=== PATIENT | male | born 1935 | race Caucasian/White ===

== ENCOUNTER 2016-11-08 05:05 | Inpatient (IN) | payer MEDICARE, OTHER ==
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
[2016-11-08 07:09] LABS: ALBUMIN 3.9 g/dL (3.5-5.0); ANION GAP 11 (5-19); ASPARTATE AMINO TRANSFERASE 38 U/L (17-59); BILIRUBIN,TOTAL 1.4 mg/dL (0.2-1.3); BLOOD UREA NITROGEN 38 mg/dL (7-20); CALCIUM 9.5 mg/dL (8.4-10.2); CARBON DIOXIDE 27 mmol/L (22-30); CHLORIDE 106 mmol/L (98-107); CREATININE RESULT 2.93 mg/dL (0.52-1.25); GLUCOSE 172 mg/dL (75-110); POTASSIUM 3.9 mmol/L (3.6-5.0); SODIUM 143.7 mmol/L (137-145); TOTAL PROTEIN 6.6 g/dL (6.3-8.2)
[2016-11-08 07:10] LABS: ALANINE AMINOTRANSFERASE 44 U/L (21-72); ALKALINE PHOSPHATASE 281 U/L (38-126)
--- NOTE | 2016-11-08 08:54 | EKG REPORT ---
SEVERITY:- ABNORMAL ECG - SINUS RHYTHM RBBB AND LPFB ST DEPRESSION, CONSIDER ISCHEMIA, ANT-LAT LDS : Confirmed by: Mali Fuentes 08-Nov-2016 08:53:25
[2016-11-08] MEDS ORDERED: FEBUXOSTAT 40 MG TABLET PO PRN (14:25)
[2016-11-08] MEDS ORDERED: HYDROCODONE/ACETAMINOPHEN 5-325 MG TABLET PO PRN (14:25)
[2016-11-08] MEDS ORDERED: ZOLPIDEM TARTRATE 5 MG TABLET PO PRN ×2 (14:25→15:11)
[2016-11-08] MEDS ORDERED: CYCLOBENZAPRINE HCL PO PRN (14:25)
[2016-11-08] MEDS ORDERED: CYCLOBENZAPRINE HCL 10 MG TABLET PO PRN (15:24)
[2016-11-08] MEDS ORDERED: DILTIAZEM HCL INJ 25 MG/5 ML VIAL IV ONE ×3 (16:30→18:00)
[2016-11-08] MEDS ORDERED: CARVEDILOL 12.5 MG TABLET PO ONE (16:30)
[2016-11-08] MEDS ORDERED: FUROSEMIDE 80 MG TABLET PO ONE (16:30)
[2016-11-08] MEDS ORDERED: AMLODIPINE BESYLATE 10 MG TABLET PO ONE (16:30)
[2016-11-08] MEDS ORDERED: ISOSORBIDE MONONITRATE 30 MG TAB.ER.24H PO ONE (16:30)
[2016-11-08] MEDS ORDERED: LOSARTAN POTASSIUM 50 MG TABLET PO ONE (16:30)
[2016-11-08] MEDS ORDERED: DILTIAZEM HCL/D5W 125 ML IV PRN (16:47)
[2016-11-08] MEDS ORDERED: METOPROLOL TARTRATE PF/INJ 5 MG/5 ML SDV IV ONE (17:15)
[2016-11-08] MEDS: CARVEDILOL 12.5 MG TABLET PO SCH (17:18)
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
--- NOTE | 2016-11-08 17:28 | Progress Note ---
Provider Note Provider Note: 11/08/2016 17:00 Patient became tachycardic On the monitor is in A. fib at a rate of 140/mn His blood pressure is 140/100 he is totally asymptomatic no chest pain no shortness of breath; he is sitting on chair very comfortable Patient was given 10 mg of Cardizem IV, 5 mg of Lopressor IV, is Coreg 12.5 mg that he had missed earlier also was given by mouth Rate is still at 130/mn Patient will be transferred to [facility] for Cardizem drip Case was discussed with Dr. [place] will consult Dr. Hollis also was notified; we will decide in a.m. if the vascular procedure can take place
[2016-11-08] MEDS ORDERED: (PENDING PHARMACY ID) (Insulin Aspart Protam & Aspart [Novolog Mix 70-30 Vial] 20 UNIT) SQ SCH (18:00)
[2016-11-08] MEDS ORDERED: FUROSEMIDE 80 MG TABLET PO SCH (18:00)
[2016-11-08] MEDS ORDERED: INSULIN GLARGINE,HUM.REC.ANLOG 1,000 UNIT/10 ML UNIT SUBCUT SCH (18:00)
[2016-11-08] MEDS ORDERED: DOCUSATE SODIUM 100 MG CAPSULE PO SCH (18:00)
[2016-11-08] MEDS ORDERED: GABAPENTIN 300 MG CAPSULE PO SCH (18:00)
[2016-11-08] MEDS ORDERED: FUROSEMIDE 40 MG TABLET PO SCH ×2 (18:00)
[2016-11-08] MEDS: INSULIN GLARGINE,HUM.REC.ANLOG 1,000 UNIT/10 ML UNIT SUBCUT SCH (18:01)
[2016-11-08] MEDS: DOCUSATE SODIUM 100 MG CAPSULE PO SCH (18:03)
[2016-11-08] MEDS ORDERED: DEXTROSE 50%-WATER 25 GM/50 ML DISP.SYRIN IV PRN ×2 (18:04)
[2016-11-08] MEDS ORDERED: DEXTROSE 40% GEL 15 GM TUBE PO PRN ×2 (18:04)
[2016-11-08] MEDS ORDERED: GLUCAGON,HUMAN RECOMB 1 MG INJ IM PRN (18:04)
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
[2016-11-08] MEDS: ATORVASTATIN CALCIUM 80 MG TABLET PO SCH (21:12)
[2016-11-08] MEDS: GABAPENTIN 300 MG CAPSULE PO SCH (21:13)
[2016-11-08] MEDS ORDERED: CARVEDILOL 12.5 MG TABLET PO SCH (22:00)
[2016-11-08] MEDS ORDERED: ATORVASTATIN CALCIUM 40 MG TABLET PO SCH ×2 (22:00)
[2016-11-08] MEDS ORDERED: CARVEDILOL 6.25 MG TABLET PO SCH ×2 (22:00)
[2016-11-08] MEDS: INSULIN LISPRO 100 UNIT/ML 3 ML VIAL SUBCUT PRN (22:06)
--- NOTE | 2016-11-08 23:02 | EKG REPORT ---
SEVERITY:- ABNORMAL ECG - SINUS RHYTHM RBBB AND LPFB ST DEPRESSION, CONSIDER ISCHEMIA, ANT-LAT LDS : Confirmed by: Mali Fuentes 08-Nov-2016 23:01:48
--- NOTE | 2016-11-08 23:03 | EKG REPORT ---
SEVERITY:- ABNORMAL ECG - ATRIAL FIBRILLATION RBBB AND LPFB ST DEPRESSION, CONSIDER ISCHEMIA, ANT-LAT LDS : Confirmed by: Mali Fuentes 08-Nov-2016 23:02:03
[2016-11-09 06:06] LABS: ABSOLUTE EOSINOPHILS # (AUTO) 0.2 10^3/uL (0.0-0.6); ABSOLUTE LYMPHOCYTES (AUTO) 0.6 10^3/uL (0.5-4.7); ABSOLUTE MONOCYTES (AUTO) 0.4 10^3/uL (0.1-1.4); ABSOLUTE NEUT (AUTO) 2.8 10^3/uL (1.7-8.2); BASOPHILS % (AUTO) 0.6 % (0-2); EOSINOPHILS % (AUTO) 4.2 % (0-6); HEMATOCRIT 28.7 % (37.9-51.0); HEMOGLOBIN 10.1 g/dL (13.5-17.0); HGB HCT DIFFERENCE 1.6; LYMPHOCYTES % (AUTO) 15.5 % (13-45); MEAN CORPUSCULAR HEMOGLOBIN 32.6 pg (27.0-33.4); MEAN CORPUSCULAR HGB CONC 35.3 g/dL (32.0-36.0); MEAN CORPUSCULAR VOLUME 92 fl (80-97); MONOCYTES % (AUTO) 9.3 % (3-13); RED BLOOD COUNT 3.11 10^6/uL (4.35-5.55); SEGMENTED NEUTROPHILS % (AUTO) 70.4 % (42-78)
[2016-11-09 06:09] LABS: ANION GAP 10 (5-19); BLOOD UREA NITROGEN 34 mg/dL (7-20); CARBON DIOXIDE 31 mmol/L (22-30); CHLORIDE 99 mmol/L (98-107); CREATININE RESULT 2.64 mg/dL (0.52-1.25); GLUCOSE 193 mg/dL (75-110); POTASSIUM 3.7 mmol/L (3.6-5.0); SODIUM 139.7 mmol/L (137-145)
[2016-11-09] MEDS: GABAPENTIN 300 MG CAPSULE PO SCH ×3 (06:53→21:35)
[2016-11-09] MEDS ORDERED: INSULIN GLARGINE,HUM.REC.ANLOG 1,000 UNIT/10 ML UNIT SUBCUT SCH (08:00)
[2016-11-09] MEDS ORDERED: ALTEPLASE INJ 2 MG VIAL (CATH CLEARANCE) INJ PRN (09:18)
[2016-11-09] MEDS ORDERED: AMLODIPINE BESYLATE 10 MG TABLET PO SCH ×2 (10:00)
[2016-11-09] MEDS ORDERED: POLYETHYLENE GLYCOL 3350 POWDER 17 GM/1 PACKET PO SCH (10:00)
[2016-11-09] MEDS ORDERED: [UNRECOGNIZED DRUG - REMARK] PO SCH (10:00)
[2016-11-09] MEDS ORDERED: ASPIRIN 81 MG TABLET, CHEWABLE PO SCH (10:00)
[2016-11-09] MEDS ORDERED: ISOSORBIDE MONONITRATE 30 MG TAB.ER.24H PO SCH (10:00)
[2016-11-09] MEDS ORDERED: (PENDING PHARMACY ID) (Losartan Potassium [Losartan Potassium] 1 TAB) PO SCH (10:00)
[2016-11-09] MEDS: INSULIN GLARGINE,HUM.REC.ANLOG 1,000 UNIT/10 ML UNIT SUBCUT SCH ×2 (10:02→17:38)
[2016-11-09] MEDS: DOCUSATE SODIUM 100 MG CAPSULE PO SCH ×2 (10:03→17:35)
[2016-11-09] MEDS: LOSARTAN POTASSIUM 50 MG TABLET PO SCH (10:03)
[2016-11-09] MEDS: ISOSORBIDE MONONITRATE 30 MG TAB.ER.24H PO SCH (10:04)
[2016-11-09] MEDS: FUROSEMIDE 80 MG TABLET PO SCH ×2 (10:04→17:35)
[2016-11-09] MEDS: ASPIRIN 81 MG TABLET, CHEWABLE PO SCH (10:48)
[2016-11-09] MEDS: POLYETHYLENE GLYCOL 3350 POWDER 17 GM/1 PACKET PO SCH (10:49)
[2016-11-09] MEDS: FOLIC ACID/VITAMIN B COMP W-C CAPSULE PO SCH (11:58)
[2016-11-09] MEDS: INSULIN LISPRO 100 UNIT/ML 3 ML VIAL SUBCUT PRN ×3 (12:21→21:37)
--- NOTE | 2016-11-09 13:51 | PDOC PROGRESS REPORT ---
Subjective Progress Note for:: 11/09/16 Subjective:: Rate is being controlled throughout the night at times he is in normal sinus rhythm or sinus arrhythmia with frequent PACs. He remains asymptomatic. Abdomen episode of confusion during the night apparently he received his zolpidem and Neurontin at the same time he usually splits dosing by several hours. He remembers being confused this morning described by the patch machine operator as an episode of a seizure on his exam. Stat CT of the head without contrast showed no evidence of acute event. By the time I arrived to the patient is back to baseline has full recollection of the events and feels like it was an adverse reaction to the medications be given simultaneously last night. Review of systems: Total of 10 systems have been reviewed with the patient pertinent positives and negatives noted above remaining systems are negative Physical Exam Vital Signs: Temp Pulse Resp BP Pulse Ox 97.7 F 52 L 18 146/97 H 100 11/09/16 11:51 11/09/16 11:51 11/09/16 07:21 11/09/16 12:01 11/09/16 11:51 Intake & Output 11/08/16 11/09/16 11/10/16 06:59 06:59 06:59 Intake Total 961 0 Output Total 2500 Balance -1539 0 Weight 78 kg General appearance: PRESENT: no acute distress, cooperative Eye exam: PRESENT: EOMI, PERRLA. ABSENT: scleral icterus Mouth exam: PRESENT: moist, neck supple Neck exam: PRESENT: full ROM. ABSENT: lymphadenopathy Respiratory exam: PRESENT: clear to auscultation marie. ABSENT: accessory muscle use Cardiovascular exam: PRESENT: RRR. ABSENT: tachycardia Pulses: PRESENT: normal carotid pulses, normal radial pulses - Left arm fistula has audible bruit but no palpable thrill GI/Abdominal exam: PRESENT: normal bowel sounds, soft. ABSENT: tenderness Extremities exam: PRESENT: full ROM, pedal edema Neurological exam: PRESENT: alert, awake, oriented to person, oriented to place , oriented to time, oriented to situation. ABSENT: ataxia, aphasic Psychiatric exam: PRESENT: appropriate affect Skin exam: PRESENT: dry. ABSENT: jaundice Results Laboratory Results: 11/09/16 04:52 11/09/16 04:52 11/09/16 11/09/16 04:52 04:52 WBC 4.0 RBC 3.11 L Hgb 10.1 L Hct 28.7 L MCV 92 MCH 32.6 MCHC 35.3 RDW 14.0 Plt Count 75 L Seg Neutrophils % 70.4 Lymphocytes % 15.5 Monocytes % 9.3 Eosinophils % 4.2 Basophils % 0.6 Absolute Neutrophils 2.8 Absolute Lymphocytes 0.6 Absolute Monocytes 0.4 Absolute Eosinophils 0.2 Absolute Basophils 0.0 Sodium 139.7 Potassium 3.7 Chloride 99 Carbon Dioxide 31 H Anion Gap 10 BUN 34 H Creatinine 2.64 H Est GFR ( Amer) 28 L Est GFR (Non-Af Amer) 23 L Glucose 193 H Calcium 9.0 Impressions: Chest X-Ray 11/08/16 05:16 IMPRESSION: CARDIAC ENLARGEMENT. VASCULAR CONGESTION. Head CT 11/09/16 06:10 IMPRESSION: MILD CHRONIC CHANGES OF ATROPHY AND MICROVASCULAR ISCHEMIA. NO ACUTE PROCESS. Assessment & Plan - Diagnosis (1) Afib Qualifiers: Atrial fibrillation type: unspecified Qualified Code(s): I48.91 - Unspecified atrial fibrillation Is this a current diagnosis for this admission?: YesPlan: Cardiology consult pending. Stop Cardizem drip, since his rate is controlled and he has converted to normal sinus rhythm. Patient missed his dose of Coreg as well as his dialysis over the weekend likely contributing to the new onset. Patient is well known to Dr. CORRIGAN and will defer to him for further recommendations including initiation of anticoagulation (2) CKD stage 5 secondary to hypertension Plan: Hemodialysis per nephrology (3) Diabetes mellitus type II, controlled Qualifiers: Diabetes mellitus complication status: with kidney complications Diabetes mellitus complication detail: with chronic kidney disease Chronic kidney disease stage: on chronic dialysis Is this a current diagnosis for this admission?: YesPlan: Continue current regimen (4) Fluid overload Qualifiers: Hypervolemia type: unspecified Qualified Code(s): E87.70 - Fluid overload, unspecified Is this a current diagnosis for this admission?: YesPlan: Due to missing hemodialysis over the weekend (5) Acute on chronic congestive heart failure Qualifiers: Congestive heart failure type: diastolic Qualified Code(s): I50.33 - Acute on chronic diastolic (congestive) heart failure Is this a current diagnosis for this admission?: YesPlan: Continue dialysis per nephrology patient is stable from this standpoint. Respiratory status improved. Continue attempts to wean O2. (6) Dialysis AV fistula malfunction Qualifiers: Encounter type: subsequent encounter Qualified Code(s): T82.590D - Other mechanical complication of surgically created arteriovenous fistula, subsequent encounter Is this a current diagnosis for this admission?: YesPlan: Dr. Hollis, vascular surgery, anticipates revision in the morning (7) Acute encephalopathy Is this a current diagnosis for this admission?: YesPlan: Resolved. Likely adverse drug reaction from combination of Neurontin and Ambien complicated by his failure to complete his hemodialysis as scheduled resulting in fluid overload and acute hypoxemia. - Time Time Spent with patient: 35 or more minutes
[2016-11-09] MEDS: CARVEDILOL 12.5 MG TABLET PO SCH (17:39)
[2016-11-09] MEDS: ATORVASTATIN CALCIUM 80 MG TABLET PO SCH (21:35)
[2016-11-10] MEDS: CARVEDILOL 12.5 MG TABLET PO SCH ×2 (05:42→17:36)
[2016-11-10] MEDS: GABAPENTIN 300 MG CAPSULE PO SCH ×3 (05:43→21:11)
[2016-11-10 07:46] LABS: ANION GAP 8 (5-19); BLOOD UREA NITROGEN 51 mg/dL (7-20); CALCIUM 8.6 mg/dL (8.4-10.2); CARBON DIOXIDE 31 mmol/L (22-30); CHLORIDE 100 mmol/L (98-107); CREATININE RESULT 3.25 mg/dL (0.52-1.25); GLUCOSE 80 mg/dL (75-110); MAGNESIUM 1.9 mg/dL (1.6-2.3); PHOSPHORUS 4.8 mg/dL (2.5-4.5); POTASSIUM 3.7 mmol/L (3.6-5.0); SODIUM 139.1 mmol/L (137-145)
[2016-11-10 08:14] LABS: RED BLOOD COUNT 2.92 10^6/uL (4.35-5.55); WHITE BLOOD COUNT 2.7 10^3/uL (4.0-10.5)
[2016-11-10 08:15] LABS: HEMATOCRIT 26.8 % (37.9-51.0); HEMOGLOBIN 9.5 g/dL (13.5-17.0); HGB HCT DIFFERENCE 1.7; MEAN CORPUSCULAR HEMOGLOBIN 32.5 pg (27.0-33.4); MEAN CORPUSCULAR HGB CONC 35.5 g/dL (32.0-36.0); MEAN CORPUSCULAR VOLUME 92 fl (80-97); RED CELL DISTRIBUTION WIDTH 13.9 % (11.5-14.0)
[2016-11-10] MEDS ORDERED: ALTEPLASE INJ 2 MG VIAL (CATH CLEARANCE) INJ PRN (08:18)
[2016-11-10] MEDS ORDERED: FENTANYL CITRATE INJ/PF 100 MCG/2 ML AMPUL ONE (09:50)
[2016-11-10] MEDS ORDERED: MIDAZOLAM 2 MG/2 ML INJ ONE (09:50)
[2016-11-10] MEDS ORDERED: EPOETIN ALFA 10,000 UNIT in SYRINGE, DISPOSABLE, 1 EACH IV ONE (10:00)
[2016-11-10] MEDS ORDERED: LIDOCAINE 0.5% INJ-PF (5 MG/ML) 50 ML SDV ONE ×2 (10:18→11:47)
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
--- NOTE | 2016-11-10 13:35 | Operative Report ---
Operative Report DATE OF SURGERY: 11/10/16 PREOPERATIVE DIAGNOSIS: #1 malfunctioning AV fistula, cephalic to brachial, left arm. #2 end-stage renal disease on hemodialysis. #3 atrial fibrillation. #4 multiple comorbidities. POSTOPERATIVE DIAGNOSIS: #1 malfunctioning AV fistula, cephalic to brachial, left arm. #2 end-stage renal disease on hemodialysis. #3 atrial fibrillation. #4 multiple comorbidities. OPERATION: #1 ultrasound guided needle access into AV fistula. #2 angioplasty central. #3 angioplasty arteriovenous fistula. #4 angiogram and interpretation. SURGEON: RACQUEL ANG J2EE DEVELOPER: none ANESTHESIA: Moderate Sedation TISSUE REMOVED OR ALTERED: Not applicable. COMPLICATIONS: None ESTIMATED BLOOD LOSS: 2 mL. INTRAOPERATIVE FINDINGS: Of a well-founded left arm brachial to cephalic fistula. Very firm. Not palpable about 15 cm. This correlates with the angiographic findings of no flow from 15 cm up to the cephalic subclavian junction. The fistula was sustained through collaterals. After angioplasty and nice conduit noted all the way up to the central system. Somewhat ragged in parts however. 2 main culprit lesions are noted 190% stenosis at the subclavian cephalic junction and another at 18 cm. Each represent about 90% of the adjacent lumen. Both eradicated by angioplasty. In addition there was a nondescript area between the 2 which was somewhat irregular at the end of the procedure. Sustaining this fistula will most certainly require re-intervention in a month or so. Well worth it in this fragile patient with a barrera fistula. PROCEDURE: PROCEDURE: After verifying the procedure and having obtained informed consent, the patient's left arm was prepared with Chlorhexidine and draped out with sterile linen. Local anesthesia infiltrated. Percutaneous access into the fistula ,[ antegrade], obtained about [5 cm] from the arteriovenous anastomosis using a micro puncture needle followed by micro puncture wire and then a micro puncture catheter. Angiogram demonstrated the aforementioned findings. Angioplasty was elected. A 0.035 [place] wire was inserted, and over this, a 6 [place]ian short introducer was placed, this was followed by a [6] angioplasty balloon . Angioplasty was Done at the cephalic to subclavian junction up to 14 rhett for 2 minutes using a 6 mm angioplasty balloon. Then serially done from the upper fistula down to the introducer. Inflating up to 22 atmospheres for 1-2 minutes at a time.]. The result was much improved with resumption of the previously nonopacified lumen. A 7 mm angioplasty balloon was inserted and inflation done at the subclavian junction up to 14 rhett for 2 minutes and then sequentially down to the introducer for up to 22 rhett for 1-2 minutes. Completion angiogram demonstrated [satisfactory result]. The instrumentation was now withdrawn over pressure held for 15 minutes. Dressings applied, procedure concluded. Exposure time: 1.2 minutes Radiation: 27 mitch per centimeters squared Contrast: 25 mL of Isovue-M 300, low osmolality. DICTATING PHYSICIAN: RACQUEL LEE M.D. cc: RACQUEL LEE M.D. ([id number]) >>
[2016-11-10] MEDS: LOSARTAN POTASSIUM 50 MG TABLET PO SCH (13:52)
[2016-11-10] MEDS: ASPIRIN 81 MG TABLET, CHEWABLE PO SCH (13:55)
[2016-11-10] MEDS: ISOSORBIDE MONONITRATE 30 MG TAB.ER.24H PO SCH (13:56)
[2016-11-10] MEDS: FOLIC ACID/VITAMIN B COMP W-C CAPSULE PO SCH (13:56)
[2016-11-10] MEDS: DOCUSATE SODIUM 100 MG CAPSULE PO SCH ×2 (13:56→17:36)
[2016-11-10] MEDS: FUROSEMIDE 80 MG TABLET PO SCH ×2 (13:56→21:16)
[2016-11-10] MEDS: POLYETHYLENE GLYCOL 3350 POWDER 17 GM/1 PACKET PO SCH (13:58)
[2016-11-10] MEDS: INSULIN GLARGINE,HUM.REC.ANLOG 1,000 UNIT/10 ML UNIT SUBCUT SCH ×2 (13:58→17:36)
[2016-11-10] MEDS: BENZONATATE 100 MG CAPSULE PO PRN (16:40)
[2016-11-10] MEDS: INSULIN LISPRO 100 UNIT/ML 3 ML VIAL SUBCUT PRN ×2 (16:40→21:28)
--- NOTE | 2016-11-10 16:41 | PDOC PROGRESS REPORT ---
Subjective Progress Note for:: 11/10/16 Subjective:: I had seen the patient during dialysis treatment this morning at around 8:20 AM. He was doing fine without any complaints. He tolerated dialysis very well. After the dialysis patient went for angiogram of his AV fistula with Dr. Hollis. Physical Exam Vital Signs: Temp Pulse Resp BP Pulse Ox 97.5 F 77 20 146/29 H 96 11/10/16 15:46 11/10/16 15:46 11/10/16 15:46 11/10/16 15:46 11/10/16 15:46 Intake & Output 11/09/16 11/10/16 11/11/16 06:59 06:59 06:59 Intake Total 961 811 0 Output Total 2500 0 Balance -1539 811 0 Weight 78 kg Vital signs during dialysis while I was seeing him this morning: Blood pressure of 118/52, pulse rate of 62, blood flow rate of 350 mL per minute and dialysate flow of 600 and mL per minute. Exam: General appearance: PRESENT: no acute distress, cooperative, well-developed, well-nourished Head exam: PRESENT: atraumatic, normocephalic Eye exam: PRESENT: conjunctiva pale, PERRLA. ABSENT: scleral icterus Neck exam: ABSENT: JVD Respiratory exam: PRESENT: Diminished breath sounds. ABSENT: crackles, rales, rhonchi, unlabored, wheezes Cardiovascular exam: PRESENT: Regular rate rhythm -+S1, +S2. ABSENT: diastolic murmur, systolic murmur GI/Abdominal exam: PRESENT: normal bowel sounds, soft. ABSENT: guarding, mass, tenderness Extremities exam: ABSENT: No edema Neurological exam: PRESENT: alert, awake, oriented to person, place and time. Skin exam: PRESENT: dry, warm, Results Laboratory Results: 11/10/16 04:32 11/10/16 04:32 11/10/16 11/10/16 04:32 04:32 WBC 2.7 L D RBC 2.92 L Hgb 9.5 L Hct 26.8 L MCV 92 MCH 32.5 MCHC 35.5 RDW 13.9 Plt Count 74 L Sodium 139.1 Potassium 3.7 Chloride 100 Carbon Dioxide 31 H Anion Gap 8 BUN 51 H Creatinine 3.25 H Est GFR ( Amer) 22 L Est GFR (Non-Af Amer) 18 L Glucose 80 Calcium 8.6 Phosphorus 4.8 H Magnesium 1.9 Impressions: Chest X-Ray 11/08/16 05:16 IMPRESSION: CARDIAC ENLARGEMENT. VASCULAR CONGESTION. Head CT 11/09/16 06:10 IMPRESSION: MILD CHRONIC CHANGES OF ATROPHY AND MICROVASCULAR ISCHEMIA. NO ACUTE PROCESS. Fistulogram 11/10/16 00:00 IMPRESSION: IMAGE(S) OBTAINED DURING PROCEDURE. ER TECH, Venous 11/10/16 00:00 IMPRESSION: IMAGE(S) OBTAINED DURING PROCEDURE. Assessment & Plan - Diagnosis (1) End stage renal disease on dialysis Is this a current diagnosis for this admission?: YesPlan: We dialyzed him today for 3 hours, using the patient's AV fistula, with 3 potassium bath, blood flow rate of 350 mL per minute, dialysate flow rate of 600 mL per minute, ultrafiltration 1.5-2 L, no heparin and Procrit 10,000 units intravenously during dialysis. Patient was monitored and tolerated dialysis well without any complications. Dr. Hollis is did angioplasty in the morning. We will continue dialysis support if the patient continues to remain in hospital. (2) Fluid overload Qualifiers: Hypervolemia type: unspecified Qualified Code(s): E87.70 - Fluid overload, unspecified Is this a current diagnosis for this admission?: YesPlan: Resolved with dialysis. (3) Persistent dry cough Is this a current diagnosis for this admission?: YesPlan: Improved. (4) Diabetes mellitus type II, controlled Qualifiers: Diabetes mellitus complication status: with kidney complications Diabetes mellitus complication detail: with chronic kidney disease Chronic kidney disease stage: on chronic dialysis Is this a current diagnosis for this admission?: Yes - Notes Notes: From nephrology standpoint patient can be discharged home. Next dialysis will be on Tuesday during his regular scheduled dialysis treatment. - Time Time with patient: 15-25 minutes
[2016-11-10] MEDS ORDERED: BENZONATATE 100 MG CAPSULE PO ONE (20:15)
[2016-11-10] MEDS: ATORVASTATIN CALCIUM 80 MG TABLET PO SCH (21:11)
[2016-11-10] MEDS ORDERED: AMIODARONE HCL 200 MG TABLET PO ONE (22:00)
--- NOTE | 2016-11-10 22:55 | CONSULTATION REPORT E ---
Consultation Report NAME: MYLES GONSALES : 1935 AGE: 80Y DATE: 11/10/2016 321 B TO: LUZ CORRIGAN M.D. FROM: Requesting Physician CHIEF COMPLAINT: Shortness of breath, nausea, excessive bowel movement, orthopnea starting 4 days prior to admission. HISTORY OF PRESENT ILLNESS: This very pleasant 80-year-old male who is known to have chronic kidney disease and end-stage renal disease on dialysis by Dr. Alvarado, had his last dialysis on , was supposed to have his next dialysis on a Tuesday but because they were closed due to snow, he was unable to get a 2-hour dialysis on Tuesday,due to no ride. He was without dialysis for 3days. Beginning about Tuesday he started feeling bad, feeling extremely weak, no appetite, increased shortness of breath, increased leg swelling, nauseated and multiple bowel movements. He felt so bad with his orthopnea and nocturnal dyspnea and lack of sleep for about 4 days, that at 4 a.m.11/08/16 he asked his to call rescue squad to take him to the ER. When he got to the ER, chest x-ray showed cardiomegaly and heart failure. He had missed his morning dose of Coreg, was not aware of rapid palpitations, but he was found to be in atrial fibrillation around 12 hu on Tuesday with a rapid ventricular response of 130-140 beats per minute, relayed to me by Dr. Phelan. Initial IV bolus of Cardizem and a slow Cardizem drip of 5 mg did not do anything for him. I recommended at that time to have him resume his Coreg 12.5 mg stat and to increase the Cardizem bolus dose and maintenance drip of Cardizem to slow down the AV node to give A Fib a chance to self convert. It is not known since patient has been asymptomatic despite his RVR on admission, it is not known when his atrial fibrillation started because he was asymptomatic of rapid palpitations. No attempt was made to convert him to sinus rhythm because of the unknown duration of his atrial fibrillation. Nevertheless, by about 7 p.m. on Tuesday, his heart rhythm spontaneously went back to normal sinus rhythm. This consultation request is to further treatment of this atrial fibrillation. In addition to atrial fibrillation, the patient is known to have significant cardiac problems. CAD: In 2013, he had non-ST elevation NC. This led to a drug-eluting stent to the left main coronary artery. Then because he had to have complicated eye surgery, he underwent another catheterization in September 2016 and this showed mild to moderate coronary artery disease with the distal left main showing 20% stenosis , the proximal and mid LAD showed lesions of 40%, the middle LAD showed a tubular 20% lesion, the diagonal was normal, the proximal left circumflex showed 50% stenosis, the OM1 was normal, the mid RCA showed 30% stenosis, the distal RCA showed 40% stenosis. His aortic stenosis was not quantified by cardiac catheterization. Due to only mild coronary artery disease, the plan was to allow him to proceed to eye surgery. Arrangements were made for him to undergo the first set of eye surgery on November 23. In the meantime, this episode of congestive heart failure happened. Aortic stenosis: The patient has moderate aortic stenosis. His mean gradient across the aortic valve was 24 mmHg (10/2015)and he therefore has moderate stenosis, but he also has moderate concentric left ventricular hypertrophy and grade 2 left ventricular diastolic dysfunction with EF about 55% to 60% and a right ventricular systolic pressure of about 35 mmHg. Despite his recent cardiac catheterization, the hemodynamic significance of his aortic stenosis was not further characterized. This aortic stenosis may very well be part of the reason for him having paroxysmal atrial fibrillation which declared itself for the first time only this 11/08/16. It is recalled he had 2 strokes in 2006,nut unknown if ? whether he had A Fib or not was not known nor investigated. Chronic heart failure: This is on the basis of moderate aortic stenosis and stage 2 left ventricular diastolic dysfunction. Prior to his initiation of hemodialysis on 02/16/2016, he went into repeated congestive heart failure from October to January of 2016. He eventually received hemodialysis from Dr. Alvarado, after which he was stable without any symptoms of congestive heart failure for the next 8 months until this weekend prior to his admission due to 3 days of no dialysis--he went back into congestive heart failure. Whether the atrial fibrillation pushed him into atrial fibrillation or not, is uncertain, highly possible because he had RVR which can give rise to tachycardia mediated cardiomyopathy in a patient who has pre-existing moderate aortic stenosis. In any case, after admission he was promptly dialyzed and he lost a couple of kilogram bodyweight but currently still has peripheral leg edema as well as mild sacral edema; therefore, he is not yet euvolemic. PAST MEDICAL HISTORY: 1. Type-2 diabetes with diabetic nephropathy, diabetes uncontrolled. 2. 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 3. Chronic anemia due to iron deficiency and CKD. 4. CKD with secondary hyperparathyroidism. 5. Hyperlipidemia. 6. Eye problem. 7. GERD. 8. GI bleeding sometime in the past (no details). 9. 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 10. Chronic obstructive pulmonary disease with pneumonia, July 2014. 11. Gouty arthritis. PAST SURGICAL HISTORY: 1. Stent to the left main coronary artery. 2. AV fistula. 3. Ventral hernia repair. 4. Stomach surgery, 1966. 5. Previous cataract extraction bilaterally but one of the lens in the right eye stitch broke off and patient is needing imminent eye surgery currently posted for November 23, 2016, since he was cleared by a fairly benign cardiac cath of his coronary arteries in 09/2016. SOCIAL HISTORY: The patient is . His is also sick at home. He has never smoked and he does not use alcohol or recreational drugs. The patient does drink 1-2 cups of coffee a day. FAMILY HISTORY: History of coronary artery disease. ALLERGIES: None known. On this admission there appeared to be heparin adverse reaction dated 11/08/2016. MEDICATIONS: 1. Aspirin 81 mg daily. 2. Amlodipine 10 mg daily. 3. Losartan 50 mg b.i.d. 4. Furosemide 80 mg b.i.d. 5. Imdur 30 mg daily. 6. Nitrostat p.r.n. 7. Carvedilol 12.5 mg b.i.d. 8. Uloric 40 mg daily. 9. Ambien. 10. MiraLax. 11. Hydrocodone/acetaminophen. 12. Flexeril. 13. Multivitamins. 14. Insulin. 15. Colace. 16. Prilosec. 17. Neurontin 30 mg t.i.d. 18. Glimepiride 4 mg daily (?). 19. Nephrocaps. 20. Eye vitamin capsules. REVIEW OF SYSTEMS: Constitutional/General: The patient was in distress prior to admission with severe fatigue, lack of sleep, weight loss, no appetite and profound weakness. Eye: Unable to see and drive and is having transportation difficulty going to doctor appointments and dialysis appointments and he desperately needs to have his right lens repaired. This will be a complicated surgery requiring 1-2 surgeons working consecutively, tentatively posted for 11/23/2016. ENT: No epistaxis, mild recent headaches, no dizziness. Endocrine: He has had polyuria and polyphagia until recently. Respiratory: He has had an incessant cough for the last 2 months--questionable COPD, questionable allergies, doubt Losartan. Cardiovascular: He has not had any chest pains. He does not do a lot of exertional activities. He does not do regular walking exercises, definitely in no rapid palpitations, increased ankle edema and leg edema in the last 4-6 days. No dizziness or near syncope. GI: He recently had nausea, no vomiting but diarrhea 3-4 times a day, no constipation, no observation of any rectal bleeding or blood in the stool but he does have some acid reflux symptoms. Hematology: He does have anemia which may be secondary to his CKD plus an element of iron deficiency. Genitourinary: He has no nocturia or dysuria or hematuria. Musculoskeletal: No myalgia or cramps or arthritis. Skin: The patient has ecchymosis in his forearms. Neurologic: He has motor weakness and left facial weakness. PHYSICAL EXAMINATION: VITAL SIGNS: Afebrile, After admission his heart rate went up 114-140 during A Fib, respirations 18, blood pressure 130/73, pulse oximetry was 100%. He has since converted spont. to NSR 73/min. GENERAL: He is in moderate distress from repetitive coughing, very cooperative, very understanding, slightly obese, alert and oriented x3. HEENT: Normocephalic skull. Pupils are equal and reactive to light, no jaundice. He tells me that his intraocular lens on the right side is malfunctioning and he is unable to see enough to drive and his license is scheduled to be renewed in December and he does really need this intraocular lens repaired. His tongue is moist. NECK: Shows no rigidity. There is no carotid or vertebral bruit. The PMI was not palpable. CARDIOVASCULAR: S4 was present. S1 was normal. S2 was increased. No S3. There is a 2-3/6 systolic ejection murmur in the aortic area radiating up to the clavicles. There is a honking murmur in the apex radiating to the left axilla. I cannot hear an aortic regurgitation murmur. Peripheral pulses are not palpable. RESPIRATORY: Lungs showed good air entry, minimal basilar crepitations were heard. ABDOMEN: Showed mild obesity but no hepatosplenomegaly. Bowel sounds were normal. EXTREMITIES: Show mild pitting edema in both lower extremities. There was definite sacral edema in the back. Peripheral pulses were not palpable, perhaps with the peripheral edema. NEUROLOGIC: Showed mild weakness in left face. 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 Otherwise no deficit. LABORATORY DATA: On arrival in the ER, the monitoring strips showed that he was in sinus rhythm with PVCs. An EKG done on 11/08/2016 at 6:12 p.m. showed atrial fibrillation with ventricular response of 116 beats per minute, but I was informed by Dr. Phelan earlier around 12 noon that the patient had atrial fibrillation with rapid ventricular response to 130-140 beats per minute without any palpitation symptoms and with a blood pressure of 140/100 at that time. Then at 8:29 p.m. an EKG showed patient's rhythm had converted back to sinus and heart rate was 77 beats per minute. On that EKG he showed right bundle branch block and left posterior fascicular block and left ventricular hypertrophy with strain. His rhythm has stayed in sinus ever since. His chest x-ray showed cardiomegaly and pulmonary vascular congestion. His BUN on admission was 38, creatinine was 2.93, sodium was 144, potassium was 3.9. The magnesium was 1.9. His most recent hemoglobin was 9.5, hematocrit 26.3, white cell count 2.7, and platelets 139,000. His most recent BUN was 31, creatinine was 3.28, sodium was 139, potassium was 3.7. ASSESSMENT AND PLAN: 1. Atrial fibrillation. This is asymptomatic despite rapid ventricular response. This occurred in the setting of missed dose(?s) of Coreg on admission and ?prior to admission. The onset was probably after admission to the ER and just prior to 12 noon at which time, I was informed by Dr. Phelan. He had rapid ventricular response 130-140 beats per minute which failed initial doses of IV Cardizem but this spontaneously converted back to sinus rhythm around 7 p.m. after stat Coreg 12.5 mg b.i.d. and continuation of an increased rate IV Cardizem drip. The IV Cardizem drip has since been discontinued. No attempt at direct current cardioversion was done nor the use of antiarrhythmic agent to cause conversion to sinus rhythm due to the uncertainty of the onset of his atrial fibrillation on initial talking to Dr. Phelan. The patient is not known to have atrial fibrillation in the past, but he did have 2 strokes in 2006 with significant residual which improved somewhat now with minimal residual on the left side. The patient's cardiac problems and medical history certainly shows that he has very well known risks of atrial fibrillation and these are = established coronary artery disease, moderate aortic stenosis, uncontrolled diabetes, prev. history of stroke, and current history of anemia. His [id number] score is 7 of 9 and, therefore, his annual stroke risk is 3.6% . His HAS-BLED score is 6 out of 9, and his annual bleeding risk for major bleeding is 6.9%. He has moderate left ventricular hypertrophy, coronary artery disease and documented history of congestive heart failure; therefore, the only antiarrhythmic agent available to him milvia rhythm control is amiodarone. For his stroke prevention, given the fact that he is on hemodialysis, Coumadin is not recommended and the only new oral anticoagulant that has been approved by FDA in a supplemental letter dated 11/29/2013 was apixaban and given the fact that he is greater than 80 years old, the dose of 2.5 mg b.i.d. I discussed the risks and benefits of rhythm control of atrial fibrillation in conjunction with prevention of stroke. I discussed with him the long-term side effects in the sole agent (amiodrone) for his clinical setting, and the long-term side effects of amiodarone with the patient. I discussed the need for stroke prevention using NOAC apixaban (Coumadin, other NOACs not recommended). The shared decision is that He agrees to using both agents but, in view of an impending intraocular lens surgery in his eyes tentatively slated 2016, he would like Eliquis deferred until he finished the cataract surgery with good results hopefully. Therefore, before he leaves the hospital, I am going to start him on amiodarone at 400 mg daily for the next 4 weeks, which would complete his loading dose of about 10 gm, thereafter he will be put on 200 mg daily. Once his surgery results are satisfactory and he does not need any eye surgery, apixaban 2.5 mg b.i.d. will be started, with baseline documentation of any positive stools or hematuria and baseline documentation of TSH, liver enzymes, PFT with DLCO and eye examination as baseline and to be q12 months for followup when he is on the amiodarone on a chronic basis. 2. Coronary artery disease, stable, status post left main stent and benign cardiac catheterization result. 3. Congestive heart failure, resolving with current dialysis, not yet euvolemic. 4. Moderate aortic stenosis to be followed outpatient. 5. Abnormal EKG with bifascicular block and left ventricular hypertrophy with strain, to be followed as an outpatient. 6. CKD and end-stage renal disease, on dialysis To be followed by Dr. Alvarado. 7. Stroke prevention = pending eye surgery prior to the end of this month, requiring deferral of initiation of NOAC. Orders written. Thank you for the courtesy of this consultation. Total time spent: 2-1/2 hours. DICTATING PHYSICIAN: LUZ CORRIGAN M.D. [id number] PHY#: [id number] ID: [id number] JOB#: [id number] ACCT: [id number] cc:LUZ CORRIGAN M.D. > MTDD
[2016-11-11] MEDS: CARVEDILOL 12.5 MG TABLET PO SCH (06:41)
[2016-11-11] MEDS: GABAPENTIN 300 MG CAPSULE PO SCH (06:41)
[2016-11-11 08:05] LABS: TROPONIN I 0.106 ng/mL
[2016-11-11 08:17] LABS: ALBUMIN 2.7 g/dL (3.5-5.0); BILIRUBIN,TOTAL 0.6 mg/dL (0.2-1.3); TOTAL PROTEIN 5.1 g/dL (6.3-8.2)
[2016-11-11] MEDS: INSULIN GLARGINE,HUM.REC.ANLOG 1,000 UNIT/10 ML UNIT SUBCUT SCH (09:02)
[2016-11-11] MEDS: DOCUSATE SODIUM 100 MG CAPSULE PO SCH (09:07)
[2016-11-11] MEDS: FUROSEMIDE 80 MG TABLET PO SCH (09:07)
[2016-11-11] MEDS: ISOSORBIDE MONONITRATE 30 MG TAB.ER.24H PO SCH (09:07)
[2016-11-11] MEDS: FOLIC ACID/VITAMIN B COMP W-C CAPSULE PO SCH (09:07)
[2016-11-11] MEDS: LOSARTAN POTASSIUM 50 MG TABLET PO SCH (09:08)
[2016-11-11] MEDS: ASPIRIN 81 MG TABLET, CHEWABLE PO SCH (09:08)
[2016-11-11] MEDS: POLYETHYLENE GLYCOL 3350 POWDER 17 GM/1 PACKET PO SCH (09:08)
[2016-11-11] MEDS: BENZONATATE 100 MG CAPSULE PO PRN (09:23)
[2016-11-11] MEDS ORDERED: AMIODARONE HCL 200 MG TABLET PO SCH (10:00)
[2016-11-11 10:01] LABS: AMORPHOUS SEDIMENT,URINE TRACE /HPF; APPEARANCE,URINE SLIGHTLY-CLOUDY; BILIRUBIN,URINE NEGATIVE (NEGATIVE); GLUCOSE, URINE 50 mg/dL (NEGATIVE); KETONES,URINE NEGATIVE (NEGATIVE); LEUKOCYTE ESTERASE,URINE NEGATIVE (NEGATIVE); NITRITE,URINE NEGATIVE (NEGATIVE); PROTEIN,URINE >=500 mg/dL (NEGATIVE); URINE SPECIFIC GRAVITY 1.015; UROBILINOGEN,URINE NEGATIVE mg/dL (<2.0)
[2016-11-11 10:43] VITALS: BP 149/75
[2016-11-11] MEDS: INSULIN LISPRO 100 UNIT/ML 3 ML VIAL SUBCUT PRN (12:20)
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
== END 2016-11-11 12:36 | disposition home or self-care (01) | DRG 252 ==
LOC: ER 05:05 → UNDOADMOB 08:10 → EH 08:10 → 4N 13:37 → EH 13:37 → INTOOBSV 14:19 → OBSVTOIN 14:19 → 4N 14:19 → 3W 17:48
PROVIDERS: ADMIT Emergency Medicine; ATTEND Emergency Medicine
PROC: 5A1D60Z (ICD-10-PCS; 2016-11-08)
PROC: 057F3ZZ Dilation of Left Cephalic Vein, Percutaneous Approach (ICD-10-PCS; principal; 2016-11-10)
DX: I48.0 Paroxysmal atrial fibrillation (principal); I50.33 Acute on chronic diastolic (congestive) heart failure; G93.40 Encephalopathy, unspecified; N18.6 End stage renal disease; I13.2 Hypertensive heart and chronic kidney disease with heart failure and with stage 5 chronic kidney disease, or end stage renal disease; T82.590A Other mechanical complication of surgically created arteriovenous fistula, initial encounter; N25.81 Secondary hyperparathyroidism of renal origin; I50.20 Unspecified systolic (congestive) heart failure; I69.354 Hemiplegia and hemiparesis following cerebral infarction affecting left non-dominant side; E11.22 Type 2 diabetes mellitus with diabetic chronic kidney disease; Z66 Do not resuscitate; Z79.899 Other long term (current) drug therapy; I25.2 Old myocardial infarction; Z95.5 Presence of coronary angioplasty implant and graft; I25.10 Atherosclerotic heart disease of native coronary artery without angina pectoris; E11.65 Type 2 diabetes mellitus with hyperglycemia; D63.1 Anemia in chronic kidney disease; D50.9 Iron deficiency anemia, unspecified; E78.5 Hyperlipidemia, unspecified; K21.9 Gastro-esophageal reflux disease without esophagitis; M10.9 Gout, unspecified; J44.9 Chronic obstructive pulmonary disease, unspecified; I69.392 Facial weakness following cerebral infarction; Z87.19 Personal history of other diseases of the digestive system; Z98.42 Cataract extraction status, left eye; Z98.41 Cataract extraction status, right eye; Z96.1 Presence of intraocular lens; Z79.82 Long term (current) use of aspirin; Z79.4 Long term (current) use of insulin; Z83.3 Family history of diabetes mellitus; Z82.49 Family history of ischemic heart disease and other diseases of the circulatory system; Z80.9 Family history of malignant neoplasm, unspecified
CPT/HCPCS: 36415; 36901; 36902; 70450; 71010; 80048; 80053; 80076; 81001; 82272; 82962; 83036; 83735; 83880; 84100; 84443; 84484; 85025; 85027; 93005; 93010; 99285; C1725; C1752; C1769; C1894; J1644; J1815; J2250; J3010; J3490; Q4081; Q9967

== ENCOUNTER 2016-11-18 23:42 | Emergency (ER) | payer MEDICARE, OTHER ==
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
[2016-11-19 02:05] LABS: ALANINE AMINOTRANSFERASE 35 U/L (21-72); ALBUMIN 3.9 g/dL (3.5-5.0); ALKALINE PHOSPHATASE 252 U/L (38-126); ANION GAP 13 (5-19); ASPARTATE AMINO TRANSFERASE 42 U/L (17-59); BILIRUBIN,TOTAL 0.9 mg/dL (0.2-1.3); BLOOD UREA NITROGEN 32 mg/dL (7-20); CALCIUM 8.4 mg/dL (8.4-10.2); CARBON DIOXIDE 27 mmol/L (22-30); CHLORIDE 100 mmol/L (98-107); CREATININE RESULT 3.05 mg/dL (0.52-1.25); GLUCOSE 167 mg/dL (75-110); POTASSIUM 3.9 mmol/L (3.6-5.0); TOTAL PROTEIN 6.7 g/dL (6.3-8.2)
[2016-11-19 02:29] LABS: TROPONIN I 0.1 ng/mL
[2016-11-19] MEDS ORDERED: ACETAMINOPHEN WITH CODEINE #3 TABLET PO ONE (02:40)
[2016-11-19] MEDS ORDERED: ONDANSETRON ODT 4 MG TAB (6 TAB/DSPK) PO PRN (02:40)
[2016-11-19 02:52] VITALS: BP 142/50
== END 2016-11-19 02:50 | disposition home or self-care (01) ==
LOC: ER 23:42
DX: R05 Cough (principal); R53.81 Other malaise; R06.02 Shortness of breath; J34.89 Other specified disorders of nose and nasal sinuses; I50.9 Heart failure, unspecified; I25.10 Atherosclerotic heart disease of native coronary artery without angina pectoris; E78.00 Pure hypercholesterolemia, unspecified; I10 Essential (primary) hypertension; J44.9 Chronic obstructive pulmonary disease, unspecified; I25.2 Old myocardial infarction; Z86.73 Personal history of transient ischemic attack (TIA), and cerebral infarction without residual deficits
CPT/HCPCS: 99283; 36415; 80053; 84484; 83880; 71020; A9270 ×2

== ENCOUNTER 2016-12-06 17:48 | Emergency (ER) | payer MEDICARE, OTHER ==
[2016-12-06] MEDS ORDERED: CALCIUM GLUCONATE 1000 MG/10 ML INJ IV ONE (19:44)
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
[2016-12-07] MEDS ORDERED: EPINEPHRINE INJ 1 MG/10 ML DISP.SYRIN ONE (08:32)
== END 2016-12-06 21:00 | disposition expired ==
LOC: ER 17:48
DX: I13.2 Hypertensive heart and chronic kidney disease with heart failure and with stage 5 chronic kidney disease, or end stage renal disease (principal); I50.33 Acute on chronic diastolic (congestive) heart failure; E11.22 Type 2 diabetes mellitus with diabetic chronic kidney disease; N18.6 End stage renal disease; I46.9 Cardiac arrest, cause unspecified; I25.10 Atherosclerotic heart disease of native coronary artery without angina pectoris; I25.2 Old myocardial infarction; J44.9 Chronic obstructive pulmonary disease, unspecified; Z87.891 Personal history of nicotine dependence
CPT/HCPCS: 99291; 92950; 96374; 96375; J0171